=== PATIENT | female | born 1995 | race Caucasian/White ===

== ENCOUNTER 2023-02-16 13:53 | Day surgery (SDC) | payer OTHER, BC ==
[2023-02-16] MEDS ORDERED: Acetaminophen 500 MG TAB PO SCH (16:00)
== END 2023-02-16 17:50 | disposition home health service (06) ==
LOC: CSHLD/OP 13:53
PROVIDERS: ATTEND Obstetrics & Gynecology
DX: O36.8130 Decreased fetal movements, third trimester, not applicable or unspecified (principal); O99.891 Other specified diseases and conditions complicating pregnancy; M25.569 Pain in unspecified knee; O99.513 Diseases of the respiratory system complicating pregnancy, third trimester; J45.909 Unspecified asthma, uncomplicated; O99.013 Anemia complicating pregnancy, third trimester; D64.9 Anemia, unspecified; W01.0XXA Fall on same level from slipping, tripping and stumbling without subsequent striking against object, initial encounter; Z3A.37 37 weeks gestation of pregnancy
CPT/HCPCS: 76819; 99282

== ENCOUNTER 2023-03-08 05:30 | Inpatient (IN) | payer BC ==
[2023-03-08] MEDS ORDERED: Bupivacaine 0.25% HCL 30 ML VIAL ONE (08:00)
[2023-03-08 19:30] VITALS: BMI 33.6
[2023-03-08] MEDS ORDERED: fentaNYL 50 mcg/mL 1 mL Vial SLOW IVP PRN (19:30)
[2023-03-08] MEDS ORDERED: Misoprostol 100 MCG TAB VAG SCH (19:30)
[2023-03-08] MEDS ORDERED: Lidocaine 1% (PF) 30 ML VIAL SC PRN (19:30)
[2023-03-08] MEDS ORDERED: Promethazine HCl 25 MG/ML VIAL IM PRN (19:30)
[2023-03-08] MEDS ORDERED: Oxytocin 30 units/NS 500 ML 500 ML IV SCH ×3 (19:30)
[2023-03-08] MEDS ORDERED: Ondansetron PF 4 MG/2 ML Vial IVP PRN (19:30)
[2023-03-08] MEDS ORDERED: Ibuprofen 800 MG TAB PO PRN (19:30)
[2023-03-08] MEDS ORDERED: HYDROcodone/Acetaminophen 5/325 mg Tablet PO PRN ×2 (19:30)
[2023-03-08] MEDS ORDERED: hydrALAZINE 20 MG/ML VIAL SLOW IVP PRN (19:30)
[2023-03-08 19:43] LABS: Hemoglobin 12.8 g/dL (12.0-15.5); Mean Corpuscular HGB CONC 33.7 g/dL (32.0-36.0); Mean Corpuscular Hemoglobin 28.2 pg (27.0-33.0); Mean Corpuscular Volume 83.7 fl (81.6-98.3); Mean Platelet Volume 11.4 fl (7.4-10.4); Platelet Count 222 10x3/uL (150-450); RBC Distribution Width 13.8 % (11.5-14.5); Red Blood Cell (RBC) Count 4.54 10x6/uL (3.90-5.03); White Blood Cell (WBC) Count 10.4 10x3/uL (3.5-10.5)
[2023-03-08 20:11] LABS: HBSAg Index 0.17 S/CO (0-0.99); Hep B Surf Ag - L&D Non-Reactive S/CO (NonReactive)
[2023-03-08 20:12] LABS: Syphilis Antibody Nonreactive (Nonreactive); Syphilis Antibody Index 0.06 S/CO (<1.00 Non-Reactive)
[2023-03-09] MEDS ORDERED: fentaNYL/Ropivacaine Epidural 100 ML ONE (03:35)
[2023-03-09] MEDS ORDERED: Ondansetron PF 4 MG/2 ML Vial IVP PRN ×2 (03:54→10:26)
[2023-03-09] MEDS ORDERED: Lactated Ringer's 500 ML IV PRN (03:54)
[2023-03-09] MEDS ORDERED: Naloxone HCl 0.4 mg/ml Vial IVP PRN ×2 (03:54)
[2023-03-09] MEDS ORDERED: diphenhydrAMINE 50 MG/ML VIAL IVP PRN (03:54)
[2023-03-09] MEDS ORDERED: Promethazine HCl 25 MG/ML VIAL IM PRN (03:54)
[2023-03-09] MEDS ORDERED: Moisturizing Cream (Eucerin) 113 GM JAR TOP PRN (03:54)
[2023-03-09] MEDS ORDERED: ePHEDrine Sulfate 50 MG/10 ML VIAL SLOW IVP PRN (03:54)
[2023-03-09] MEDS ORDERED: Acetaminophen 325 MG TAB PO PRN (03:54)
[2023-03-09] MEDS ORDERED: fentaNYL 2 mcg/Ropivacaine 0.2% Epidural 100 ML CADD EPIDURAL SCH (04:00)
[2023-03-09] MEDS ORDERED: Communication Order-Pharmacy FS SCH (04:00)
[2023-03-09] MEDS ORDERED: Methylergonovine 0.2 MG/ML VIAL ONE (10:13)
[2023-03-09] MEDS: Misoprostol 200 MCG TAB ONE ×3 (10:22→10:31)
[2023-03-09] MEDS ORDERED: hydrALAZINE 20 MG/ML VIAL SLOW IVP PRN (10:26)
[2023-03-09] MEDS ORDERED: Preparation H Ointment 28 GM TUBE PR PRN (10:26)
[2023-03-09] MEDS ORDERED: Lanolin Ointment 7 GM TUBE TOP PRN (10:26)
[2023-03-09] MEDS ORDERED: Bisacodyl 10 MG SUPP PR PRN (10:26)
[2023-03-09] MEDS ORDERED: Milk Of Magnesia 30 ML UDCUP PO PRN (10:26)
[2023-03-09] MEDS ORDERED: diphenhydrAMINE 25 MG CAP PO PRN (10:26)
[2023-03-09] MEDS ORDERED: Boostrix 0.5 ML (Tdap) VIAL (>/=7 yrs of age) IM ONE (10:26)
[2023-03-09] MEDS: Ibuprofen 800 MG TAB PO SCH ×2 (15:10→22:06)
[2023-03-09] MEDS: Ketorolac Tromethamine 30 MG/ML VIAL IVP PRN ×2 (15:15→22:07)
[2023-03-09] MEDS: Ferrous Sulfate 325 MG TAB PO SCH (18:31)
[2023-03-09] MEDS: Lactated Ringer's 1,000 ML IV SCH (18:31)
[2023-03-09] MEDS: Misoprostol 100 MCG TAB VAG SCH (18:32)
[2023-03-10] MEDS: Ferrous Sulfate 325 MG TAB PO SCH (07:20)
[2023-03-10] MEDS: Docusate 100 MG CAP PO SCH ×3 (07:21→21:26)
[2023-03-10] MEDS ORDERED: Ibuprofen 100 MG/5 ML UDCUP PO SCH (07:30)
[2023-03-10] MEDS: Ibuprofen 800 MG TAB PO SCH (07:45)
[2023-03-10] MEDS: HYDROcodone/Acetaminophen 5/325 mg Tablet PO PRN ×2 (09:56→21:28)
[2023-03-10] MEDS: Prenatal Vitamin 1 TAB PO SCH (11:00)
[2023-03-10] MEDS ORDERED: Benzocaine-Menthol 82.5 ML CAN TOP PRN (12:02)
[2023-03-10] MEDS: Ibuprofen 100 MG/5 ML UDCUP PO SCH ×2 (14:07→21:26)
[2023-03-11] MEDS: Ibuprofen 100 MG/5 ML UDCUP PO SCH ×2 (05:20→14:05)
[2023-03-11 07:47] VITALS: BP 101/65; TEMP 97.8
[2023-03-11] MEDS: Ferrous Sulfate 325 MG TAB PO SCH (08:44)
[2023-03-11] MEDS: Docusate 100 MG CAP PO SCH (08:45)
[2023-03-11] MEDS: HYDROcodone/Acetaminophen 5/325 mg Tablet PO PRN ×2 (08:46→13:16)
[2023-03-11] MEDS: Prenatal Vitamin 1 TAB PO SCH (08:46)
== END 2023-03-11 14:25 | disposition home or self-care (01) | DRG 807 ==
LOC: CSHLD 17:57 → CSHPED 03-09 13:00
PROVIDERS: ADMIT Obstetrics & Gynecology; ATTEND Obstetrics & Gynecology
PROC: 10E0XZZ Delivery of Products of Conception, External Approach (ICD-10-PCS; principal; 2023-03-09)
PROC: 0KQM0ZZ Repair Perineum Muscle, Open Approach (ICD-10-PCS; 2023-03-09)
PROC: 3E033VJ Introduction of Other Hormone into Peripheral Vein, Percutaneous Approach (ICD-10-PCS; 2023-03-09)
PROC: 3E0P7VZ Introduction of Hormone into Female Reproductive, Via Natural or Artificial Opening (ICD-10-PCS; 2023-03-09)
PROC: 3E033XZ Introduction of Vasopressor into Peripheral Vein, Percutaneous Approach (ICD-10-PCS; 2023-03-09)
DX: O24.420 Gestational diabetes mellitus in childbirth, diet controlled (principal); Z37.0 Single live birth; Z3A.40 40 weeks gestation of pregnancy; O76 Abnormality in fetal heart rate and rhythm complicating labor and delivery; O70.1 Second degree perineal laceration during delivery
CPT/HCPCS: 36415; 51702; 85027; 86780; 86850; 86900; 86901; 87340; J1885; J2210; J2405; J2590; S0020